=== PATIENT | female | born 1995 | race Two or more races ===

== ENCOUNTER 2024-05-24 07:06 | Observation (INO) | payer MEDICAID, SELFPAY ==
[2024-05-24] VITALS (16 sets, daily range): BP systolic 124; BP diastolic 80; PULSE 76–117; RESP 16–100; TEMP 36.8; O2SAT 91–100; BMI 29.0
--- NOTE | 2024-05-24 08:36 | ESHP_ITS ---
RE: LARISSA SOTELO : 1995 DATE OF ADMISSION: 05/27/2024 HISTORY OF PRESENT ILLNESS: This is a 29-year-old 2, para 1 with a due date of 05/28/2024 with intrauterine at 39 weeks and 6 days. She presents to labor and delivery complaining of contractions. She denies any leaking or bleeding. She reports normal movement. Her care was complicated by borderline chronic hypertension for which she takes no medications. She has been on aspirin throughout her . She denies any headache, change in vision or right upper quadrant pain. She underwent a 24-hour urine collection on 05/16/2024, which showed 96 mg of protein over 24 hours. ALLERGIES: NO KNOWN DRUG ALLERGIES. MEDICATIONS: 1. multivitamin 1 tablet p.o. daily. 2. Aspirin 81 mg one p.o. daily. 3. Ferrous sulfate 325 mg one p.o. daily. PAST MEDICAL HISTORY: Gallstones, borderline chronic hypertension, iron deficiency anemia. PAST SURGICAL HISTORY: Bariatric surgery, gastric sleeve. FAMILY HISTORY: Diabetes. OBSTETRIC HISTORY: In 2021, 40-week normal vaginal delivery, 7 pounds 12-ounce female with no complications. REVIEW OF SYSTEMS: She denies any chest pain, palpitations, cough, fever, shortness of breath, or lower extremity pain. PHYSICAL EXAMINATION: VITAL SIGNS: Blood pressure 121/74, heart rate 88, respirations 18, temperature 98.2, weight 162 pounds. HEENT: Oropharynx and sclerae clear. LUNGS: Clear to auscultation bilaterally. HEART: Regular rate and rhythm. ABDOMEN: Gravid consistent with estimated weight 7.5 pounds. PELVIC: See RN notes. EXTREMITIES: Nontender. SKIN: No gross rash or lesions. NEUROLOGIC: No focal deficit. ASSESSMENT AND PLAN: Intrauterine at 39 weeks and 6 days in labor, anticipate spontaneous vaginal delivery. Informed consent was obtained. The patient was made aware of the risks, complications, alternatives, and benefits of the proposed procedure and she agrees. She is aware of the risk of operative vaginal delivery and delivery and agrees with these modes of delivery if indicated. DT: 07:42:00 TT: 08:34:00 Ref: [id number] - TID: [id number] [facility]
== END 2024-05-24 08:38 | disposition home or self-care (01) ==
PROVIDERS: Admitting Provider Specialist; Visit Provider Specialist
DX: O47.1 False labor at or after 37 completed weeks of gestation (principal); Z3A.39 39 weeks gestation of pregnancy
CPT/HCPCS: 59025; 59899

== ENCOUNTER 2024-05-27 03:37 | Inpatient (IN) | payer MEDICAID, SELFPAY ==
--- NOTE | 2024-05-24 08:36 | ESHP_ITS ---
RE: LARISSA SOTELO : 1995 DATE OF ADMISSION: 05/27/2024 HISTORY OF PRESENT ILLNESS: This is a 29-year-old 2, para 1 with a due date of 05/28/2024 with intrauterine at 39 weeks and 6 days. She presents to labor and delivery complaining of contractions. She denies any leaking or bleeding. She reports normal movement. Her care was complicated by borderline chronic hypertension for which she takes no medications. She has been on aspirin throughout her . She denies any headache, change in vision or right upper quadrant pain. She underwent a 24-hour urine collection on 05/16/2024, which showed 96 mg of protein over 24 hours. ALLERGIES: NO KNOWN DRUG ALLERGIES. MEDICATIONS: 1. multivitamin 1 tablet p.o. daily. 2. Aspirin 81 mg one p.o. daily. 3. Ferrous sulfate 325 mg one p.o. daily. PAST MEDICAL HISTORY: Gallstones, borderline chronic hypertension, iron deficiency anemia. PAST SURGICAL HISTORY: Bariatric surgery, gastric sleeve. FAMILY HISTORY: Diabetes. OBSTETRIC HISTORY: In 2021, 40-week normal vaginal delivery, 7 pounds 12-ounce female with no complications. REVIEW OF SYSTEMS: She denies any chest pain, palpitations, cough, fever, shortness of breath, or lower extremity pain. PHYSICAL EXAMINATION: VITAL SIGNS: Blood pressure 121/74, heart rate 88, respirations 18, temperature 98.2, weight 162 pounds. HEENT: Oropharynx and sclerae clear. LUNGS: Clear to auscultation bilaterally. HEART: Regular rate and rhythm. ABDOMEN: Gravid consistent with estimated weight 7.5 pounds. PELVIC: See RN notes. EXTREMITIES: Nontender. SKIN: No gross rash or lesions. NEUROLOGIC: No focal deficit. ASSESSMENT AND PLAN: Intrauterine at 39 weeks and 6 days in labor, anticipate spontaneous vaginal delivery. Informed consent was obtained. The patient was made aware of the risks, complications, alternatives, and benefits of the proposed procedure and she agrees. She is aware of the risk of operative vaginal delivery and delivery and agrees with these modes of delivery if indicated. DT: 07:42:00 TT: 08:34:00 Ref: [id number] - TID: [id number] [facility]
[2024-05-27] VITALS (55 sets, daily range): BP systolic 0–143; BP diastolic 0–91; PULSE 68–123; RESP 15–100; TEMP 36.7–37.6; O2SAT 86–100; BMI 28.7
[2024-05-27] MEDS: fentaNYL CIT INJ 50 mCg/ML AMP 2ML 100 MCG IV (05:04)
--- NOTE | 2024-05-27 05:13 | PD.LDPN ---
Documentation for date of: 05/27/24 OB Labor Progress Note Pain Control Comments: Fentanyl Pelvic Exam Dilation (cm): 7 Effacement (%): 80 station: 0 Amniotic membrane status: Ruptured Comments: Clear Contractions Contraction frequency: q 3 min Assessment and Plan Comments: Anticipate .
[2024-05-27 05:23] LABS: Basophils % (Auto) 0 % (0-2.5); Eosinophils % (Auto) 1 % (0-10); Hematocrit 31.9 % (36.0-46.0); Hemoglobin 10.7 g/dL (12.0-16.0); Immature Granulocytes % (Auto) 0 % (0-0); Immature Granulocytes Auto 0.03 Thou/mm3 (0.00-0.00); Lymphocytes # (Auto) 3.3 Thou/mm3 (1.0-4.8); Lymphocytes % (Auto) 41 % (10-50); Mean Corpuscular HGB Conc 33.5 g/dl (31.0-37.0); Mean Corpuscular Hemoglobin 27.9 pg (25.0-35.0); Mean Corpuscular Volume 83 fL (80-100); Monocytes # (Auto) 0.6 Thou/mm3 (0.0-0.8); Monocytes % (Auto) 7 % (0-12); Neutrophils # (Auto) 4.2 Thou/mm3 (1.8-7.7); Neutrophils % (Auto) 51 % (37-80); Nucleated Red Blood Cell % 0 /100 WBC (0); Platelet Count 174 Thou/mm3 (140-440); RDW Standard Deviation 39.8 fL (36.4-46.3); Red Blood Count 3.83 Miln/mm3 (4.00-5.20); White Blood Count 8.1 Thou/mm3 (3.6-11.0)
[2024-05-27 06:47] LABS: Syphilis Nonreactive (Nonreactive)
[2024-05-27] MEDS: OXYTOCIN in NS 20 units 20 UNIT/1,000 ML BAG 125 UNIT IV (07:02)
--- NOTE | 2024-05-27 07:10 | ESDS_ITS ---
DS: Providers Provider Date of admission: 05/27/24 04:21 Primary care physician: Physician No Primary/Family Admitting Provider: Emeterio Baez MD Attending Provider on Admission: Emeterio Baez MD Attending Provider on DC: Emeterio Baez MD Discharging Provider: Emeterio Baez MD DS: Diagnosis Problem List Completed Was Problem List Reviewed/Reconciled?: Yes Summary/Hosp Course Time Spent with Patient Time attestation: Total time spent providing and/or coordinating discharge services: Exam Vital Signs Temp Pulse Resp BP Pulse Ox 99.7 F 101 H 17 143/59 H 98 05/27/24 04:22 05/27/24 07:03 05/27/24 04:22 05/27/24 07:03 05/27/24 07:05 Discharge Plan Plan Patient Disposition: HOME (Self Care) Patient condition on transfer: Stable Prescriptions/Referrals Prescriptions/Med Rec: New ibuprofen 600 mg tablet 600 mg PO Q6H PRN (Reason: pain) Qty: 30 0RF Continued vit #[id number] 27 mg iron-1 mg-200 mg Capsule 1 cap PO QDAY Discontinued ferrous sulfate 325 mg (65 mg iron) tablet,delayed release (DR/EC) 325 mg PO BID Qty: 60 1RF aspirin 81 mg tablet,delayed release (DR/EC) 81 mg PO QDAY Referrals: No Primary/Family,Physician [Primary Care Provider] - Patient/Caregiver Discharge Instructions Discharge Activity: activity as tolerated Other Discharge Activity Instructions:: Follow up 6 weeks Print Language: Bulgarian Stand Alone Forms: Francoise Award Info., Patient Portal Info Letter Discharge Order Discharge Orders: Discharge (Routine); Ordered 05/28/24 Ordered By: Emeterio Baez Planned Discharge Date 05/28/24
--- NOTE | 2024-05-27 09:22 | PD.LDDELS ---
Data (Silva) Data Hx Section: No : 2 Para: 1 Term: 1 : 0 : 0 Delivery Data (Silva) Labor Data ROM Date: 05/27/24 ROM Time: 05:07 Rupture Type: AROM Amniotic Fluid: Clear Delivery Data EDC: 05/28/24 EDC calculated by:: LMP/early US confirmation Labor Onset Stage 1 Date: 05/27/24 Labor Onset Stage 1 Time: 04:21 Labor Onset Stage 2 Date: 05/27/24 Labor Onset Stage 2 Time: 06:52 Delivery Date: 05/27/24 Delivery Time: 06:57 Gestational age (weeks): 39 Gestational age (days): 6 Placenta Delivery Date: 05/27/24 Placenta Delivery Time: 07:02 Delivered by: Emeterio Baez Delivery nurse: Karen Forman Other staff at delivery: Nursery Nurse Other staff at delivery: Mandi Antoine Delivery Method Delivery: Vaginal Delivery Type: Spontaneous Presentation: Vertex Position: OA Anesthesia Type Primary Anesthesia: None Placenta Placenta Delivery: Spontaneous Placenta Cultures Obtained: No Placenta Sent for Examination: No Cord Sample: Cord Blood Obtained Episiotomy Episiotomy: None EBL Estimated blood loss (ml): 250 Additional Procedures None Complications Complications: None Data (Silva) Data Infant Gender: Female Weight Grams: 3160 1 Minute Total: 8 5 Minute Total: 9
[2024-05-27 14:38] LABS: Basophils % (Auto) 0 % (0-2.5); Eosinophils % (Auto) 0 % (0-10); Hematocrit 29.9 % (36.0-46.0); Hemoglobin 9.9 g/dL (12.0-16.0); Immature Granulocytes % (Auto) 0 % (0-0); Immature Granulocytes Auto 0.02 Thou/mm3 (0.00-0.00); Lymphocytes # (Auto) 1.2 Thou/mm3 (1.0-4.8); Lymphocytes % (Auto) 11 % (10-50); Mean Corpuscular HGB Conc 33.1 g/dl (31.0-37.0); Mean Corpuscular Hemoglobin 27.9 pg (25.0-35.0); Mean Corpuscular Volume 84 fL (80-100); Monocytes # (Auto) 0.4 Thou/mm3 (0.0-0.8); Monocytes % (Auto) 3 % (0-12); Neutrophils # (Auto) 9.7 Thou/mm3 (1.8-7.7); Neutrophils % (Auto) 86 % (37-80); Nucleated Red Blood Cell % 0 /100 WBC (0); Platelet Count 155 Thou/mm3 (140-440); RDW Standard Deviation 40.2 fL (36.4-46.3); Red Blood Count 3.55 Miln/mm3 (4.00-5.20); White Blood Count 11.3 Thou/mm3 (3.6-11.0)
[2024-05-28 00:45] VITALS: BP 118/76; PULSE 75; RESP 16; TEMP 36.7; O2SAT 98
[2024-05-28 05:30] VITALS: BP 114/79; PULSE 86; RESP 16; TEMP 36.8; O2SAT 98
--- NOTE | 2024-05-28 06:41 | ESPR_ITS ---
Exam Vital Signs Temp Pulse Resp BP Pulse Ox O2 Del Method 98.3 F 86 16 114/79 98 Room Air 05/28/24 05:30 05/28/24 05:30 05/28/24 05:30 05/28/24 05:30 05/28/24 05:30 05/28/24 05:30 Objective Labs 05/27/24 12:54 Labs: Laboratory Results - last 24 hr 05/27/24 05/27/24 04:46 12:54 WBC 11.3 H RBC 3.55 L Hgb 9.9 L Hct 29.9 L MCV 84 MCH 27.9 MCHC 33.1 RDW Std Deviation 40.2 Plt Count 155 Neut % (Auto) 86 H Lymph % (Auto) 11 [place] % (Auto) 3 Eos % (Auto) 0 Baso % (Auto) 0 Neut # (Auto) 9.7 H Lymph # (Auto) 1.2 [place] # (Auto) 0.4 Eos # (Auto) 0.0 Baso # (Auto) 0.0 Immature Gran # (Auto) 0.02 H Absolute Nucleated RBC 0.00 Immature Gran % 0 Nucleated RBC % 0 Syphilis Serology Nonreactive Blood Type B Positive Antibody Screen NEGATIVE Blood Bank Wristband ID Yes Assessment & Plan Assessment Comment Assessment comment: s/p Plan Comment Plan Comment: Discharge. Time Spent With Patient Time: Total time spent is greater than 50% in coordination of care (as documented) at patient's floor/unit and/or counseling patient:
[2024-05-28 08:44] VITALS: BP 125/80; PULSE 69; RESP 17; TEMP 36.7; O2SAT 98
== END 2024-05-28 11:49 | disposition home or self-care (01) | DRG 560 ==
LOC: S4SX 07:17 → S4NX 05-28 06:42 → S4SX 06-04 09:10
PROVIDERS: Admitting Provider Specialist; Visit Provider Specialist
DX: O80 Encounter for full-term uncomplicated delivery (principal); Z37.0 Single live birth; Z3A.39 39 weeks gestation of pregnancy
CPT/HCPCS: 36415; 59025; 59409; 85025; 86780; 86850; 86900; 86901; 94762; J2590; J3010; A9270

== ENCOUNTER 2024-09-04 05:45 | Day surgery (SDC) | payer MEDICAID, SELFPAY ==
--- NOTE | 2024-08-31 18:47 | ESHP_ITS ---
RE: LARISSA SOTELO : 1995 DATE OF ADMISSION: 09/04/2024 HISTORY OF PRESENT ILLNESS: This is a 29-year-old 2, para 2 who is multiparous and desires voluntary sterilization. ALLERGIES: NO KNOWN DRUG ALLERGIES. MEDICATIONS: None. PAST MEDICAL HISTORY: Borderline chronic hypertension, gastric sleeve, gallstones. SOCIAL HISTORY: She denies any alcohol, drug use, or smoking. She is . FAMILY HISTORY: Diabetes. PAST SURGICAL HISTORY: Gastric sleeve. OBSTETRIC HISTORY: Two previous full-term normal vaginal deliveries without complications. REVIEW OF SYSTEMS: She denies any chest pain, palpitations, cough, fever, shortness of breath, or lower extremity pain. PHYSICAL EXAMINATION: Vital Signs: Blood pressure 110/70, heart rate 88, respirations 18, temperature 98.2. HEENT: Oropharynx and sclerae are clear. Lungs: Clear to auscultation bilaterally. Heart: Regular rate and rhythm. Abdomen: Nontender. Extremities: Nontender. Skin: No gross rashes or lesions. Neurologic: No focal deficits. ASSESSMENT AND PLAN: Multiparous, desires voluntary sterilization. PLAN: Laparoscopic bilateral tubal ligation. Informed consent was obtained. The patient was made aware of the risks, complications, alternatives, and benefits of the proposed procedure and she agrees. She is aware of the failure rate and the increased risk of tubal ectopic gestation if occurs. She is aware that vasectomy is simpler, easier and safer with a lower failure rate, but her male partner declines that option. She is aware of the reversible methods of control, but she declines those options. Informed consent was obtained. The patient was made aware of the risks, complications, alternatives, and benefits of the proposed procedure and she agrees. She is aware of the risk of injury to bowel, bladder, adjacent organs, blood clots in the deep veins of the legs and lungs, anesthesia complications, reoperation to repair injury to internal organs, injury to the vessels to the abdominal wall, hematoma, abscess, wound infection, wound dehiscence, pelvic infection, reoperation to repair injury to internal organs, anesthesia complications, the possibility that a laparotomy needs to be performed to complete the procedure or control bleeding, and the possibility the procedure is unable to be completed due to technical difficulties or severe adhesions. DT: 17:44:13 TT: 18:46:00 Ref: [id number] - TID: [id number] [facility]
[2024-09-03 06:48] VITALS: BMI 24.9
[2024-09-03 08:32] LABS: Basophils % (Auto) 1 % (0-2.5); Eosinophils # (Auto) 0.1 Thou/mm3 (0.0-0.5); Eosinophils % (Auto) 2 % (0-10); Hematocrit 33.4 % (36.0-46.0); Hemoglobin 11.7 g/dL (12.0-16.0); Immature Granulocytes % (Auto) 0 % (0-0); Lymphocytes # (Auto) 2.9 Thou/mm3 (1.0-4.8); Lymphocytes % (Auto) 59 % (10-50); Mean Corpuscular Hemoglobin 27.9 pg (25.0-35.0); Mean Corpuscular Volume 80 fL (80-100); Monocytes # (Auto) 0.3 Thou/mm3 (0.0-0.8); Monocytes % (Auto) 6 % (0-12); Neutrophils # (Auto) 1.6 Thou/mm3 (1.8-7.7); Neutrophils % (Auto) 32 % (37-80); Nucleated Red Blood Cell % 0 /100 WBC (0); Platelet Count 190 Thou/mm3 (140-440); RDW Standard Deviation 42.5 fL (36.4-46.3); White Blood Count 4.8 Thou/mm3 (3.6-11.0)
[2024-09-03 08:47] LABS: Alanine Aminotransferase < 7 U/L (10-49); Albumin, Serum 4.3 gm/dL (3.5-5.0); Albumin/Globulin Ratio 1.7 (1.2-2.2); Alkaline Phosphatase 68 U/L (46-116); Anion Gap 10 (7-16); Aspartate Amino Transferase 14 U/L (0-34); BUN/Creatinine Ratio 13 Ratio (12-20); Beta HCG,Quantitative < 1 mIU/mL (<5.0); Bilirubin,Total 0.8 mg/dL (0.3-1.2); Blood Urea Nitrogen 9 mg/dL (9-23); Calcium 8.5 mg/dL (8.3-10.6); Calcium (Corrected) 8.5 mg/dL (8.5-10.1); Carbon Dioxide 26.5 mMol/L (20.0-31.0); Chloride 109 mMol/L (98-107); Creatinine (Component) 0.7 mg/dL (0.6-1.3); Estimated Creatinine Clearance 112.8 mL/min (>60); Globulin 2.5 gm/dL (2.3-3.5); Glucose 97 mg/dL (74-106); Osmolality,Calculated 287 (275-295); Potassium 3.3 mMol/L (3.4-5.1); Sodium 145 mMol/L (136-145); Total Protein 6.8 gm/dL (5.7-8.2); eGFR > 60 See Note
[2024-09-03 08:49] LABS: Partial Thromboplastin Time 25.1 Seconds (22.0-36.0); Prothrombin Time 11.3 Seconds (9.0-12.2)
[2024-09-04] VITALS (7 sets, daily range): BP systolic 115–143; BP diastolic 63–101; PULSE 65–116; RESP 14–20; TEMP 36.6–37.1; O2SAT 97–100; BMI 24.6
--- NOTE | 2024-09-04 08:25 | PD.GYNPROC ---
Operative Note - PATIENT ACCESS REGISTRAR Procedure Date of procedure: 09/04/24 Procedure Performed: Laparoscopic bilateral salpingectomy Indication: Multiparity desires voluntary sterilization Pre-Op diagnosis: Multiparity desires voluntary sterilization Post-Op diagnosis: Multiparity desires voluntary sterilization Anesthesia type: General Procedure description: After proper informed consent was obtained. And the patient was made aware of the risk complication alternative benefits of the proposed procedure she was taken the operating room where she underwent induction of general anesthesia she is placed in dorsolithotomy position and prepped and draped you sterile fashion. A timeout was performed. Speculum was placed in the vagina. The acorn uterine manipulator was placed. Attention was then turned to the abdomen where the physician regowned and gloved. A 5 mm incision was made in the umbilical fold. With tenting up of the abdomen Veress needle was inserted. Saline confirmed intra-abdominal placement. A pneumoperitoneum was created to 12 mmHg. The Veress needle was then removed. The 5 mm trocar was then inserted with tenting up to the abdomen. The laparoscope connected to the video camera was then utilized to visualize the pelvis. A 2nd and 3rd incision was made first 2 cm above the symphysis pubis through this 5 mL incision a 5 mm trocar was inserted under direct visitation laparoscope. And then a left mid quadrant 5 mm incision was made and through this incision a 5 mm trocar was inserted under direct visualization a laparoscope. Using the Virgen Geck grasper and using the 1136 harmonic scalpel the right salpingectomy was performed and hemostasis was achieved and the specimen sent to pathology attention was then turned to the left fallopian tube which was grasped at the fimbriated end and using the 1136 harmonic scalpel the left salpingectomy was performed hemostasis was achieved and specimen sent to pathology. There was no bleeding at the end of the procedure. All instruments removed from the abdomen after all carbon oxide was removed from the peritoneal cavity. The incisions were closed with 4-0 Monocryl and infiltrated with Marcaine half percent with epinephrine and covered with Dermabond. Attention was then turned to the vagina where the acorn manipulator was removed there was no bleeding at the cervix at the end of the procedure all instruments removed from the vagina. She was placed in the supine position and reversed from general anesthesia. She was transferred to the recovery room. Counts were correct. Specimen: left tube and right tube Estimated blood loss (ml): 5 Findings: Grossly normal-appearing uterus fallopian tubes and ovaries. No evidence of endometriosis. Omental adhesion in the mid epigastric region above the umbilicus. Complications: none Surgical staff Operation Date: 09/04/24 07:30 Case Staff Anesthesiologist: Yemi Montilla RN First Assistant: Juliana Arroyo Diagnosis Discharge Diagnosis (1) Sterilization: Status: Acute Problem List Completed Was Problem List Reviewed/Reconciled?: Yes
--- NOTE | 2024-09-04 08:27 | SUR.PHASEI ---
0808 Patient arrived to recovery resting comfortably in [facility], drowsy and able to arouse with verbal prompting, on oxygen 2L via nasal cannula, breathing unlabored, vital signs stable, denies pain, dressing intact to lower abdomen; dermabond, no bleeding noted, report received from Darion PHILIP and Dr. Vergara
--- NOTE | 2024-09-04 08:28 | SUR.PHASEI ---
0828 Patients heart rate elevated 116, Dr. Montilla at bedside and aware, no new order, will continue to monitor patient.
--- NOTE | 2024-09-04 09:26 | SUR.PHASEII ---
0926 Patient meets discharge criteria from recovery, awake and alert, breathing unlabored, vital signs stable, denies pain, dressing intact; no bleeding noted, patient eating ice chips; denies nausea, assisted with dressing into her clothing by her , discharge instructions given to patient and patients , signed discharge instructions. Patient given all her belongings prior to discharge, transported via wheelchair and left in a private vehicle.
== END 2024-09-04 09:26 | disposition home or self-care (01) ==
PROVIDERS: PCP Family Medicine; Referring Provider Specialist; Visit Provider Specialist
PROC: (CPT 58670; principal; 2024-09-04 07:30)
DX: Z30.2 Encounter for sterilization (principal); I10 Essential (primary) hypertension; Z98.84 Bariatric surgery status
CPT/HCPCS: 58661; 36415; 80053; 84702; 85025; 85610; 85730; 86850; 86900; 86901; A4217; A4649; J0131; J0690; J1100; J2250; J2405; J2704; J3010; J3490; A9270